=== PATIENT | male | born 1995 | race African-American/Black ===

== ENCOUNTER 2021-09-17 04:49 | Emergency (ER) | payer OTHER ==
[2021-09-17 05:15] VITALS: BP 116/83; PULSE 86; TEMP 98.8; BMI 27.1
[2021-09-17 05:50] LABS: BASO % 2.7 % (0-2.0); EOS % 3.2 % (0-4.5); HEMATOCRIT 41.7 % (35.4-49); HEMOGLOBIN 14.5 GM/dL (11.7-16.9); LYMPH % 37.1 % (8-40); MCH 29.8 pg (25.7-33.7); MCHC 34.8 g/dl (32.0-35.9); MEAN CELL VOLUME 85.7 fl (80-96); MEAN PLT VOLUME 7.2 fl (7.5-11.1); MONO % 9.7 % (3.8-10.2); NEUT % 47.3 % (42.8-82.8); PLATELET COUNT 232 10^3/uL (134-434); RBC 4.87 M/mm3 (4.00-5.60); RDW 12.8 % (11.9-15.9); WHITE BLOOD COUNT 6.6 K/mm3 (4.0-10.0)
[2021-09-17 06:11] LABS: CALCIUM 9.1 mg/dL (8.5-10.1)
[2021-09-17 06:12] LABS: ALBUMIN 4.2 g/dl (3.4-5.0); MAGNESIUM 1.9 mg/dL (1.8-2.4)
[2021-09-17 06:15] LABS: CREATININE 1.2 mg/dL (0.55-1.3); PHOSPHOROUS 3.8 mg/dL (2.5-4.9)
[2021-09-17 06:16] LABS: BILIRUBIN,TOTAL 0.4 mg/dL (0.2-1); TOT PROT 7.5 g/dl (6.4-8.2)
== END 2021-09-17 06:44 | disposition home or self-care (01) ==
LOC: JER 04:49
DX: R20.2 Paresthesia of skin (principal)
CPT/HCPCS: 36415; 70450-TC; 71046-TC-FY; 80053; 83735; 84100; 85025; 93005; 93010; 99284-25

== ENCOUNTER 2022-11-25 21:42 | Emergency (ER) | payer BC, OTHER ==
[2022-11-25 21:58] VITALS: BP 113/70; PULSE 73; RESP 18; TEMP 98.8; BMI 26.4
== END 2022-11-26 00:37 | disposition home or self-care (01) ==
LOC: FER 21:42
DX: H61.21 Impacted cerumen, right ear (principal)
CPT/HCPCS: 99282-25

== ENCOUNTER 2024-03-30 06:00 | Emergency (ER) | payer BC, OTHER ==
[2024-03-30 06:13] VITALS: BP 115/67; PULSE 74; RESP 18; TEMP 99.3; BMI 26.4
== END 2024-03-30 06:45 | disposition home or self-care (01) ==
LOC: FER 06:00
DX: B34.9 Viral infection, unspecified (principal); R05.9 Cough, unspecified
CPT/HCPCS: 0241U-QW; 71046-TC-FY; 99284-25